=== PATIENT | male | born 1940 | race Caucasian/White ===

== ENCOUNTER 2017-09-30 08:11 | Observation (INO) | payer OTHER ==
[~2017-09-30] VITALS: Ht 175.3 cm; Wt 104.3 kg
[~2017-09-30 08:11] MED LIST: ASPIR 8181 MG PO; ASPIRIN325 PO; CEFDINIR300 MG PO; COLACE100 MG PO; COZAAR 50 MG TA50 M2 PO; DIPHENHYDRAMINE25 M3 PO; ENOXAPARIN40 MG/0.1 SUBQ; EYE VITAMIN MINERALS PO; FLOMAX PO; HYDRALAZINE 2525 MG PO; HYDROCODONE-AP1 EAC6 PO; LIPITOR 20 MG T20 M1 PO; MIRALAX17 GM PO; OMEPRAZOLE; OMEPRAZOLE20 M2 PO; ONDANSETRON HCL4 M2 PO; PERCOCET 5-3251 EACH PO; PHENERGAN 25 MG25 M1 PO; PREDNISONE 10 M10 MG PO; PRILOSEC20 MG PO; PROTONIX40 M1 PO; TRANSDERM-SCO1 PATC1 TD; TYLENOL325 MG PO
[2017-09-30 08:14] VITALS: BP 167/82
[2017-09-30] MEDS ORDERED: B/P MED PO (08:23)
[2017-09-30 08:33] LABS: ABSOLUTE BASOPHILS 0.1 thou/uL (0.0-0.2); ABSOLUTE EOSINOPHILS 0.2 thou/uL (0.0-0.7); ABSOLUTE LYMPHOCYTES 2.2 thou/uL (0.8-5.3); ABSOLUTE MONOCYTES 1.2 thou/uL (0.0-1.2); ABSOLUTE NEUTROPHILS 4.7 thou/uL (1.6-8.1); EOSINOPHILS 2.5 %; HEMATOCRIT 46.1 % (42.0-52.0); HEMOGLOBIN 15.5 gm/dL (14.0-18.0); LYMPHOCYTES 26.4 %; MCHC 33.7 g/dL (28.0-37.0); MCV 89.2 fL (80.0-100.0); MONOCYTES 14.1 %; MPV 7.5 fl. (7.2-11.1); NUCLEATED RBCS 0 /100WBC; PLATELET COUNT* 305 thou/uL (150-400); RBC 5.17 mil/uL (4.50-6.00); RDW-CV 13.8 % (10.5-14.5); WBC 8.4 thou/uL (4.0-11.0)
[2017-09-30 08:40] LABS: ANION GAP 9 mmol/L (7-16); BUN 8 mg/dL (7-18); CALCIUM 9.1 mg/dL (8.5-10.1); CHLORIDE 104 mmol/L (98-107); CO2 28 mmol/L (21-32); GLUCOSE 101 mg/dL (70-99); POTASSIUM 4.1 mmol/L (3.5-5.1); SODIUM 141 mmol/L (136-145)
[2017-09-30 08:50] LABS: ALBUMIN 3.9 g/dL (3.4-5.0); ALKALINE PHOSPHATASE 103 U/L (46-116); LIPASE 48 U/L (73-393); NT-PRO BRAIN NAT PEPTIDE 62 pg/mL (<300); SGOT 54 U/L (15-37); SGPT 23 U/L (30-65); TOTAL BILIRUBIN 0.4 mg/dL (<0.1-1.0); TOTAL PROTEIN 8.4 g/dL (6.4-8.2); TROPONIN-I LEVEL <0.06 ng/mL (<0.06)
[2017-09-30 09:54] LABS: URINE BILIRUBIN NEGATIVE (Negative); URINE BLOOD NEGATIVE (Negative); URINE CLARITY CLEAR; URINE COLOR YELLOW; URINE GLUCOSE-RANDOM NEGATIVE (Negative); URINE KETONES NEGATIVE (Negative); URINE LEUKOCYTES-REFLEX NEGATIVE (Negative); URINE NITRITE-REFLEX NEGATIVE (Negative); URINE PROTEIN NEGATIVE (Negative); URINE SPECIFIC GRAVITY <= 1.005 (1.005-1.030); URINE UROBILINOGEN 0.2 E.U./dl (0.2-1.0)
[2017-09-30 11:05] VITALS: BP 116/77
--- NOTE | 2017-09-30 11:23 | EKG ---
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1940 Requested By: Svetlana Gamboa Order Number: [id number] MD: Raheem Wetzel Measurements Intervals [place] Rate: 65 P: -8 IN: 192 QRS: 39 QRSD: 100 T: 14 QT: 421 QTc: 438 Interpretive Statements Sinus rhythm Abnormal R-wave progression, early transition Baseline wander in lead(s) V2 Compared to ECG 02/13/2016 09:45:48 No significant changes Electronically Signed On 09-30-2017 11:23:30 CDT by Raheem Wetzel [email or web address] <ELECTRONICALLY SIGNED> By: Raheem Wetzel MD, [facility] 09/30/17 1123 [id number] [id number] Raheem Wetzel MD, [facility] /EPI
[2017-09-30 11:34] VITALS: BP 116/77
--- NOTE | 2017-09-30 16:03 | EKG ---
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 09/30/17 1603 5 Raheem Wetzel MD, [facility] /EPI
--- NOTE | 2017-09-30 17:06 | EXE ---
[place] [address] STRESS ECHOCARDIOGRAM Name: DWIGHT TOWNSEND Room: [address] [facility]#: [id number] Admission: 09/30/17 Attend Phys: Porfirio Cortes Discharge: Date of : 40 Date of Service: 09/30/17 1705 Report #: [id number] THIS REPORT FOR: //name// APPROVED REPORT Study performed: 09/30/2017 15:59:12 Exam: Dobutamine Stress Echo Indication: Chest pain , Syncope Patient Location: In-Patient Stress Nurse: Leanna Agustin RN Room #: [facility] Supervising Physician: Raheem Wetzel MD Status: routine Ht: 5 ft 9 in HR: 59 bpm BP: 142/74 mmHg Medical History Cardiac Risk Factors: HTN, Hyperlipidemia Procedure The patient underwent a Pharmacological Stress Test using Dobutamine. Blood pressure, heart rate, and EKG were monitored. An Echocardiogram was performed by biomedical electronics technician in four stages in quad fashion. At peak stress, four selected images were obtained and placed side by side with resting images for comparison. Stress Test Details Stress Test: Pharmacological stress testing performed using 30 mcg/kg/min of Dobutamine. HR Resting HR: 59 bpm Max Heart Rate (APMHR): 143 bpm Max HR Achieved: 121 bpm Target HR (85% APMHR): 121 bpm % of APMHR: 84 Recovery HR: 85 bpm HR response to stress: Normal HR response to stress BP Resting BP: 142/74 mmHg Max BP: 161/52 mmHg Recovery BP: 161/68 mmHg ECG Resting ECG: Sinus Rhythm [address] [address] STRESS ECHOCARDIOGRAM Name: DWIGHT TOWNSEND Room: [address]#: [id number] Admission: 09/30/17 Attend Phys: Porfirio Cortes Discharge: Date of : 40 Date of Service: 09/30/17 1705 Report #: [id number] Stress ECG: Sinus Tachycardia Maximum ST Deviation: 0 mm Arrhythmia: VPC's Recovery ECG: Sinus Rhythm Recovery ST Deviation: 0 mm Recovery Arrhythmia: None Clinical Stress Symptoms: Chest pain Patient complained of chest pain and nausea during dobutamine infusion Pre-Stress Echo The resting Echocardiogram showed normal left ventricular contractility with an estimated Ejection Fraction of about 55-60%. Post-Stress Echo The stress Echocardiogram showed normal left ventricular contractility with an estimated Ejection Fraction of about >70%. Conclusion Clinical Response: Equivocal Stress ECG Response: Non-ischemic Stress Echo Images: Non-ischemic low risk dobutamine stress echo for future cardiac events Other Information Study Quality: Good <Conclusion> low risk dobutamine stress echo for future cardiac events <ELECTRONICALLY SIGNED> By: Raheem Wetzel MD, FAC 09/30/17 1705 04 04 Raheem Wetzel MD, [facility] /INF
[2017-09-30 20:00] VITALS: BP 118/64
[2017-09-30 23:39] VITALS: BP 104/53
[2017-10-01 03:41] VITALS: BP 144/77
[2017-10-01 04:53] LABS: HEMATOCRIT 41.2 % (42.0-52.0); HEMOGLOBIN 14.1 gm/dL (14.0-18.0); MCH 30.2 pg (26.0-34.0); MCHC 34.2 g/dL (28.0-37.0); MCV 88.4 fL (80.0-100.0); MPV 7.5 fl. (7.2-11.1); RBC 4.66 mil/uL (4.50-6.00); RDW-CV 13.7 % (10.5-14.5)
[2017-10-01 05:04] LABS: ALBUMIN 3.4 g/dL (3.4-5.0); CALCIUM 8.9 mg/dL (8.5-10.1); POTASSIUM 4.9 mmol/L (3.5-5.1); TOTAL BILIRUBIN 0.4 mg/dL (<0.1-1.0); TOTAL PROTEIN 6.8 g/dL (6.4-8.2)
--- NOTE | 2017-10-01 08:57 | CON ---
[address] [address] CONSULTATION Name: DWIGHT TOWNSEND Room: [address] IN M.R.#: [id number] Admission: 09/30/17 Attend Phys: Joe Bocanegra Discharge: Date of : 40 Report #: [id number] THIS REPORT FOR: //name// CC: Tushar Cortes DATE OF SERVICE: 09/30/2017 HISTORY OF PRESENT ILLNESS: The patient is a 77-year-old white male who I was asked to see in the hospital today after he complained of chest pain. The history is obtained from the patient as well as some old records. He was actually admitted here to [facility] in 04/2015 with flank pain. He was found to have kidney stones. He was admitted here in 10/2015 with nausea and vomiting. 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 The patient was seen by Neurology. He was discharged on blood pressure medications and aspirin a day. The patient stays fairly active, going for walks. States he was doing well until last several days, he has noticed a pain in his chest that goes into his back. It is not related to exertion or meals. It occurs off and on. He has had no belching or blood in the stool. He denied any trauma to his chest or rash. He also noticed a cough. He woke at 1:00 this morning with a headache on the top of his head. He also had a chill. He finally came to the Emergency Room last night. He was admitted. He has also been weak. He denies any significant palpitations or syncope. PAST MEDICAL HISTORY: Otherwise significant only for an appendectomy. He has history of hypertension, hyperlipidemia. He has had a previous stroke. He has a history of kidney stones. MEDICATIONS: On admission included omeprazole, aspirin. He is apparently on a blood pressure pill, although he did not know the name. ALLERGIES: HE WAS GIVEN LIPITOR, BUT DEVELOPED MUSCLE ACHES AND STOPPED TAKING IT. FAMILY HISTORY: Negative for heart disease. SOCIAL HISTORY: He is . [place] 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 No smoking, no longer drinks alcohol. He stays active, working on old cars. REVIEW OF SYSTEMS: He has had no history of asthma, peptic ulcer disease, liver disease, cancer, psychiatric illness, chronic skin condition. PHYSICAL EXAMINATION: GENERAL: Revealed an elderly male, lying in bed, appeared in no acute distress. VITAL SIGNS: His blood pressure 140/70, pulse 60. [place] [address] CONSULTATION Name: DWIGHT TONWSEND Room: [address]#: [id number] Admission: 09/30/17 Attend Phys: Joe Bocanegra Discharge: Date of : 40 Report #: [id number] HEENT: He is anicteric. Conjunctivae pink. Mucous members moist. NECK: Veins do not appear distended. No carotid bruits. Neck supple. CHEST: Clear to auscultation. CARDIOVASCULAR: Regular rate without murmur. ABDOMEN: Soft, nontender. EXTREMITIES: Had no edema. Posterior tibial pulse 2+ bilaterally. SKIN: Cool and dry. NEUROLOGIC: Nonfocal. LYMPH: No adenopathy. MUSCULOSKELETAL: No joint effusion. RADIOLOGICAL DATA: His ECG on admission this morning showed a sinus rhythm. There was no ST or T-wave change noted. His workup in the Emergency Room today, he had CT scan of the head performed without contrast that showed chronic changes, no acute abnormality. His chest x-ray showed normal heart size, clear lung curran. CT scan of the chest using a PE protocol showed no PE or aortic dissection. LABORATORY DATA: Sodium 141, creatinine 1.0, glucose 101. Liver function studies were normal. Troponin 0.06. His white blood cell count was 8.4, hemoglobin 15.5. The patient had an echocardiogram in 2016 when he was here with a stroke that showed ejection fraction 60%. No ASD, trace tricuspid insufficiency and mild pulmonary hypertension. IMPRESSION AND RECOMMENDATIONS: 1. Chest pain. Atypical for angina. Suspect noncardiac. Recommend stress echocardiogram using dobutamine. 2. History of chills. The patient is noted to have a normal white blood cell count and was afebrile on admission. No obvious evidence of infection. 3. Previous stroke. No recurrent episodes on aspirin. 4. Hyperlipidemia. The patient could not tolerate statin drug in the past. Previous LDL was only 106. 5. He complained of a headache. No acute abnormality on the CT scan. 6. History of kidney stones. <ELECTRONICALLY SIGNED> By: Raheem Wetzel MD, [facility] 10/01/17 0857 [id number] [id number] Wetzel MD, [facility] /nt
[2017-10-01 11:02] VITALS: BP 144/77
[2017-10-01 12:40] VITALS: BP 131/68
== END 2017-10-01 17:33 | disposition home or self-care (01) ==
LOC: M.ERS 08:11 → M.2W 09:54 → M.TBA-ER 09:54 → M.2W 09:54
PROVIDERS: Personal Emergency Response Attendant; ADMIT Internal Medicine
DX: R07.89 Other chest pain (principal); R55 Syncope and collapse; I10 Essential (primary) hypertension; K21.9 Gastro-esophageal reflux disease without esophagitis; R10.11 Right upper quadrant pain; M54.9 Dorsalgia, unspecified; R50.9 Fever, unspecified; R51 Headache; E78.5 Hyperlipidemia, unspecified; R09.81 Nasal congestion; Z86.73 Personal history of transient ischemic attack (TIA), and cerebral infarction without residual deficits; Z98.890 Other specified postprocedural states